=== PATIENT | female | born 2000 | race Hispanic/Latino ===

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

== ENCOUNTER 2022-05-11 17:21 | Emergency (ER) | payer OTHER, SELFPAY ==
--- NOTE | 2022-05-11 18:44 | PC.NURSE ---
PT LWBS NOT TRIAGED
== END 2022-05-11 19:08 | disposition left against medical advice (07) ==
LOC: ANHED 19:03
DX: Z53.21 Procedure and treatment not carried out due to patient leaving prior to being seen by health care provider (principal)
CPT/HCPCS: 99199

== ENCOUNTER 2022-10-29 19:08 | Emergency (ER) | payer OTHER, SELFPAY ==
--- NOTE | ~2022-10-29 | US_ITS ---
EXAMINATION: US abdomen limited DATE: 10/29/2022 21:36 INDICATION: Biliary colic. TECHNIQUE: Multiple grayscale and Doppler ultrasound images of the abdomen were obtained. COMPARISON: None FINDINGS: The visualized portions of the head and body of the pancreas are normal. The liver is zion l without focal lesion. There is normal flow in main portal vein. The gallbladder is distended and co ntains sludge. No gallstones or gallbladder wall thickening. The common duct is normal and measures 4 mm. There is antegrade flow in main portal vein. IMPRESSION: 1. Gallbladder sludge. Gallbladder distention may be secondary to fasting. No gallbladder wall thicke jose to suggest acute cholecystitis. Reviewed, dictated and finalized at location E. IMPRESSION: 1. Gallbladder sludge. Gallbladder distention may be secondary to fasting. No g allbladder wall thickening to suggest acute cholecystitis.
[2022-10-29 19:13] VITALS: BP 137/86; PULSE 70; RESP 18; TEMP 36.8; O2SAT 100
[2022-10-29] MEDS: ACETAMINOPHEN 500 MG TABLET 1000 MG PO (21:10)
[2022-10-29] MEDS: SODIUM CHLORIDE 0.9% IV 1,000 ML 999 ML IV CONT (21:10)
[2022-10-29] MEDS: KETOROLAC 15 MG/ML VIAL (*BKC) IV PUSH (21:11)
--- NOTE | 2022-10-29 21:31 | ED.GENADULT ---
HPI - General Adult General Chief complaint: Abdominal Pain Stated complaint: abd pain Time Seen by Provider: 10/29/22 20:32 History of Present Illness HPI narrative: This is a 22-year-old female presenting ED with abdominal pain x1 year. Patient says she is intermittently having achy pain on the right side of her abdomen for the last year. However this morning it became more constant. It is 8/10 in intensity. There are no exacerbating relieving factors. Not associated with fever, chills, nausea vomiting diarrhea urinary symptoms. patient's last menstrual period was earlier this month. Related Data Home Medications Medication Instructions Recorded Confirmed ferrous sulfate 325 mg (65 mg 325 mg PO TID 08/03/21 08/24/21 iron) tablet (FeroSul) vit no.95-ferrous 1 tablet PO DAILY 08/03/21 08/24/21 fumarate 28 mg-folic acid 800 mcg tablet () Allergies Allergy/AdvReac Type Severity Reaction Status Date / Time Penicillins Allergy Rash Verified 10/29/22 19:08 [facility] Family History Family History Grandparent Diabetes mellitus Social History Social History Smoking status: Never smoker Substance use: never Spiritual care concerns: No Exam Narrative: APPEARANCE: elevated BMI, , no apparent distress Head: atraumatic. EYES: EOMI, NOSE: Atraumatic NECK: Trachea midline RESPIRATORY: No increased rate of breathing clear auscultation CARDIOVASCULAR: RRR, ABDOMINAL: Nondistended, soft nontender no guarding or rebound, no CVA tenderness MUSCULOSKELETAl: No obvious deformities NEURO: Alert. Moving 4/4 extremities SKIN:: Warm, dry. Normal color PSYCHIATRIC: Normal affect Course Vital Signs Vital signs: Vital Signs Temperature 98.2 F 10/29/22 19:13 Pulse Rate 70 10/29/22 19:13 Respiratory Rate 18 10/29/22 19:13 Blood Pressure 137/86 10/29/22 19:13 Pulse Oximetry 100 10/29/22 19:13 Oxygen Delivery Room Air 10/29/22 19:13 Temperature 98.2 F 10/29/22 19:13 Pulse Rate 70 10/29/22 19:13 Respiratory Rate 18 10/29/22 19:13 Blood Pressure 137/86 10/29/22 19:13 Pulse Oximetry 100 10/29/22 19:13 Oxygen Delivery Room Air 10/29/22 19:13 Medical Decision Making MDM Narrative Medical decision making narrative: -Presentation: 22-year-old presenting with right-sided abdominal pain x1 year. -DDX includes but is not limited to: Biliary colic, gastritis, functional abdominal pain, appendicitis -Co-morbidities complicating care: obesity -Social determinants of health: patient is unemployed lives with her mom -External Chart Review: review of previous admission notes for . -Hx from independent Sources: Sister Sonya at bedside -Discussion of Management/Consultants: none -Independent interpretation of studies: CBC showed hemoglobin of 8.8. The patient is taking iron supplementation. Metabolic panels unremarkable with no elevations in liver enzymes. Urine was not indicative of infection. Abdominal ultrasound showed gallbladder sludge but no evidence of cholecystitis. Dx tests considered but not ordered: CT abdomen pelvis - patient has no tenderness in the right lower quadrant I am not concerned for appendicitis. -Procedures: None -Interventions: Toradol, Tylenol, 2 L normal saline -Shared decision making / Disposition: upon re-evaluation patient is resting comfortably. She is tolerating p.o.. Her abdominal exam is still benign. She will be discharged with surgery follow-up as her pain is likely due to her gallbladder. -RX Vital Signs Vital Signs: Vital Signs Temperature 98.2 F 10/29/22 19:13 Pulse Rate 70 10/29/22 19:13 Respiratory Rate 18 10/29/22 19:13 Blood Pressure 137/86 10/29/22 19:13 Pulse Oximetry 100 10/29/22 19:13 Oxygen Delivery Room Air 10/29/22 19:13 Temperature
[2022-10-29 21:34] LABS: Basophils Absolute Auto 0.1 K/mm3 (0.0-0.1); Basophils Percent Auto 0.6 % (0.2-1.2); Eosinophils Absolute Auto 0.1 K/mm3 (0-0.3); Eosinophils Percent Auto 0.7 % (0-4.4); Hematocrit 30.4 % (37.0-47.0); Hemoglobin 8.8 g/dL (12.0-15.0); Immature Granulocyte Absolute 0.02 K/mm3 (0.00-0.031); Immature Granulocyte Percent A 0.2 % (0-0.5); Lymphocytes Percent Auto 34.4 % (18.3-44.2); Mean Corpuscular HGB Conc 28.9 g/dl (32-36); Mean Corpuscular Hemoglobin 20.2 pg (26-34); Mean Corpuscular Volume 69.9 fl (80-100); Mean Platelet Volume 8.6 fl (7.4-10.4); Monocytes Absolute Auto 0.5 K/mm3 (0.1-0.6); Monocytes Percent Auto 5.1 % (2.6-8.5); Neutrophils Absolute Auto 5.7 K/mm3 (1.3-6.7); Platelet Count Result 446 k/mm3 (150-375); Red Blood Count 4.35 M/mm3 (4.2-5.4); Red Cell Distribution Width 19.2 % (11.5-14.5); White Blood Count 9.6 K/mm3 (4.5-10.0)
[2022-10-29 21:46] LABS: Anisocytosis 1+ (NORMAL); Hypochromasia 1+ (NORMAL); Microcytosis 1+ (NORMAL); Ovalocytes 1+ (NORMAL); Platelet Estimate Increased (Adequate)
[2022-10-29 21:47] LABS: Alanine Aminotransferase 22 U/L (6-35); Albumin Level 4.6 g/dL (3.5-5.1); Alkaline Phosphatase 89 U/L (38-126); Anion Gap 9 mmol/L (8-16); Aspartate Amino Transferase 31 U/L (14-36); Bilirubin,Total 0.5 mg/dL (0.2-1.3); Blood Urea Nitrogen 6 mg/dL (7-17); Carbon Dioxide 23 mmol/L (22-30); Chloride 107 mmol/L (98-107); Estimated CRCL calculation 165 ml/min; Estimated Glomerular Filt Rate > 60; Glucose 103 mg/dL (65-110); Lipase 90 U/L (23-300); Potassium 4.1 mmol/L (3.4-5.0); Schistocytes None Seen (NORMAL); Sodium 139 mmol/L (137-145)
[2022-10-29 21:52] LABS: Appearance Urine Clear (Clear); Bilirubin Urine Negative (Negative); Blood Urine Negative (Negative); Color Urine Yellow (Yellow); Glucose Urine UA Negative (Negative); Ketones Urine Negative (Negative); Leukocyte Esterase Ur Negative LEU/UL (Negative); Nitrate Urine Negative (Negative); Protein Urine Negative (Negative); Specific Grav Ur 1.014 (1.001-1.035); Urobilinogen Urine 0.2 mg/dL (<2.0); pH Urine 7.5 (5.0-9.0)
[2022-10-29 21:56] LABS: Add Urine Microscopic? NO
[2022-10-29 23:07] VITALS: BP 124/65; PULSE 62; RESP 18; O2SAT 97
== END 2022-10-29 23:09 | disposition home or self-care (01) ==
PROVIDERS: Emergency Provider Emergency Medicine
DX: K80.50 Calculus of bile duct without cholangitis or cholecystitis without obstruction (principal)
CPT/HCPCS: 36415; 76705; 80053; 81003; 81025; 83690; 85025; 96361; 96374; 99284; A9270; J1885; J7030

== ENCOUNTER 2023-06-28 02:21 | Day surgery (SDC) | payer OTHER, SELFPAY ==
[2023-06-28] VITALS (17 sets, daily range): BP systolic 111–149; BP diastolic 55–83; PULSE 72–105; RESP 16–20; TEMP 36.6–37.4; O2SAT 97–100
--- NOTE | ~2023-06-28 | US_ITS ---
US right upper quadrant DATE: 06/28/2023 08:08 INDICATION: Right upper quadrant abdominal pain TECHNIQUE: Real-time imaging of liver, pancreas, gallbladder COMPARISON: 10/29/2022 Limited abdominal ultrasound examination FINDINGS: There is an approximately 2 cm nonmobile hyperechoic focus with posterior shadowing at the gallbladder neck, consistent with gallbladder neck gallstone. The gallbladder is distended. The wall does not appear abnormally thickened. However, there is an approximately 4 x 9.5 mm soft tissue densi ty along the lower medial wall of the gallbladder, with internal vascularity, likely a polyp. Negative sonographic Davila's sign. The common bile duct measures 3.2 mm, within normal limits. No hepatic space-occupying mass lesion is detected. Normal hepatopedal portal venous flow direction. There is limited visualization of the pancreas. IMPRESSION: Gallbladder neck 2 cm gallstone, nonmobile Probable gallbladder polyp Reviewed, dictated and finalized at [facility]. Reviewed, dictated and finalized at [facility]. ASSOCIATE
[2023-06-28 02:37] LABS: Basophils Absolute Auto 0.1 K/mm3 (0.0-0.1); Basophils Percent Auto 0.4 % (0.2-1.2); Eosinophils Absolute Auto 0.1 K/mm3 (0-0.3); Hematocrit 33.4 % (37.0-47.0); Hemoglobin 9.7 g/dL (12.0-15.0); Immature Granulocyte Absolute 0.05 K/mm3 (0.00-0.031); Immature Granulocyte Percent A 0.4 % (0-0.5); Lymphocytes Absolute Auto 2.57 K/mm3 (0.9-3.2); Lymphocytes Percent Auto 21.2 % (18.3-44.2); Mean Corpuscular Hemoglobin 20.5 pg (26-34); Mean Corpuscular Volume 70.5 fl (80-100); Mean Platelet Volume 8.5 fl (7.4-10.4); Monocytes Absolute Auto 0.7 K/mm3 (0.1-0.6); Monocytes Percent Auto 5.5 % (2.6-8.5); Neutrophils Absolute Auto 8.7 K/mm3 (1.3-6.7); Neutrophils Percent Auto 71.5 % (45.5-73.1); Platelet Count Result 447 k/mm3 (150-375); Red Blood Count 4.74 M/mm3 (4.2-5.4); Red Cell Distribution Width 17.9 % (11.5-14.5); White Blood Count 12.1 K/mm3 (4.5-10.0)
[2023-06-28 02:53] LABS: Appearance Urine Clear (Clear); Bilirubin Urine Negative (Negative); Blood Urine Negative (Negative); Color Urine Yellow (Yellow); Glucose Urine UA Negative (Negative); Ketones Urine Negative (Negative); Leukocyte Esterase Ur Negative LEU/UL (Negative); Nitrate Urine Negative (Negative); Protein Urine Negative (Negative); Specific Grav Ur 1.029 (1.001-1.035); Urobilinogen Urine 0.2 mg/dL (<2.0); pH Urine 5.5 (5.0-9.0)
[2023-06-28 02:54] LABS: Add Urine Microscopic? NO
[2023-06-28 02:59] LABS: Alanine Aminotransferase 24 U/L (6-35); Albumin Level 4.5 g/dL (3.5-5.1); Alkaline Phosphatase 101 U/L (38-126); Anion Gap 10 mmol/L (8-16); Aspartate Amino Transferase 43 U/L (14-36); Bilirubin,Total 0.5 mg/dL (0.2-1.3); Blood Urea Nitrogen 8 mg/dL (7-17); Calcium 9.1 mg/dL (8.4-10.2); Carbon Dioxide 26 mmol/L (22-30); Chloride 103 mmol/L (98-107); Estimated CRCL calculation 152 ml/min; Estimated Glomerular Filt Rate > 60; Glucose 127 mg/dL (65-110); Lipase 96 U/L (23-300); Potassium 4.1 mmol/L (3.4-5.0); Sodium 139 mmol/L (137-145)
[2023-06-28 03:04] LABS: Platelet Estimate Adequate (Adequate)
[2023-06-28 03:05] LABS: Hypochromasia 1+ (NORMAL); Microcytosis 2+ (NORMAL)
[2023-06-28 03:06] LABS: Schistocytes None Seen (NORMAL)
--- NOTE | 2023-06-28 07:53 | ED.GENADULT ---
HPI - General Adult General Chief complaint: Abdominal Pain Stated complaint: Right sided abdomin pain Time Seen by Provider: 06/28/23 06:58 History of Present Illness HPI narrative: Patient is a 23-year-old female who presents ER with right upper quadrant abdominal pain. Ongoing since last night. Worse after eating chicken and broccoli. Has history of acid reflux but this feels different. No diarrhea. No fevers or chills or sweats. No alleviating factors. Mother with history of gallstones. Related Data Home Medications Medication Instructions Recorded Confirmed vit no.95-ferrous 1 tablet PO DAILY 08/03/21 06/28/23 fumarate 28 mg-folic acid 800 mcg tablet () Allergies Allergy/AdvReac Type Severity Reaction Status Date / Time Penicillins Allergy Rash Verified 06/28/23 13:07 Review of Systems Review of Systems: All systems reviewed & are unremarkable except as noted in HPI and below Constitutional: Constitutional: Denies chills, Denies fatigue and Denies fever(s) ENT: Reports system reviewed and no additional complaints, except as documented Cardiovascular: Cardiovascular: Reports no additional cardiovascular complaints Respiratory: Respiratory: Reports no additional respiratory complaints Gastrointestinal: Gastrointestinal: Reports abdominal pain, Denies diarrhea, Reports nausea and Denies vomiting PMFSH Past Medical History Medical History Anemia GERD (gastroesophageal reflux disease) Surgical History Surgical History No pertinent past surgical history Family History Family History Grandparent Diabetes mellitus Social History Social History Smoking status: Never smoker Alcohol intake: never Substance use: never Spiritual care concerns: No Exam Narrative: GENERAL: Well-appearing, well-nourished, and in no acute distress. HEAD: Normocephalic, atraumatic. ENT: Mucous membranes moist. CHEST: Clear to auscultation. No respiratory distress. HEART: Regular rate and rhythm. Normal peripheral pulses. ABDOMEN: Soft, nontender, nondistended. EXTREMITIES: Normal range of motion. No edema. SKIN: Warm, dry, no rash. NEURO: Alert and oriented x3. PSYCH: Normal mood and affect. Course Course Emergency Course: Patient initially accepted to General surgery Service, however a spot in OR opened up and patient was taken for a cholecystectomy. She did receive IV antibiotics. Vital Signs Vital signs: Vital Signs Temperature 97.8 F 06/28/23 02:23 Blood Pressure 147/77 H 06/28/23 02:23 Temperature 98.1 F 06/28/23 14:34 Pulse Rate 73 06/28/23 17:05 Respiratory Rate 18 06/28/23 15:55 Blood Pressure 116/65 06/28/23 17:05 Pulse Oximetry 98 06/28/23 15:55 Oxygen Delivery Room Air 06/28/23 17:05 Oxygen Flow Rate 8 06/28/23 15:01 Medical Decision Making Vital Signs Vital Signs: Vital Signs Temperature 97.8 F 06/28/23 02:23 Blood Pressure 147/77 H 06/28/23 02:23 Temperature 98.1 F 06/28/23 14:34 Pulse Rate 73 06/28/23 17:05 Respiratory Rate 18 06/28/23 15:55 Blood Pressure 116/65 06/28/23 17:05 Pulse Oximetry 98 06/28/23 15:55 Oxygen Delivery Room Air 06/28/23 17:05 Oxygen Flow Rate 8 06/28/23 15:01 Lab Data 06/28/23 02:31 06/28/23 02:31 Labs: Lab Results 06/28/23 06/28/23 Range/Units 02:31 02:45 WBC 12.1 H (4.5-10.0) K/mm3 RBC 4.74 (4.2-5.4) M/mm3 Hgb 9.7 L (12.0-15.0) g/dL Hct 33.4 L (37.0-47.0) % MCV 70.5 L (80-100) fl MCH 20.5 L (26-34) pg MCHC 29.0 L (32-36) g/dl RDW 17.9 H (11.5-14.5) % Plt Count 447 H (150-375) k/mm3 MPV 8.5 (7.4-10.4) fl Immature Gran % (Auto)
[2023-06-28] MEDS: ONDANSETRON INJ 4 MG/2 ML VIAL IV PUSH (09:00)
--- NOTE | 2023-06-28 11:14 | PM.IMHP ---
H&P: HPI History of Present Illness Date/Time: 06/28/23 11:14 Chief Complaint: RUQ abdominal pain Narrative: This is a 23-year-old woman who presented to the ER today with complaints of right upper quadrant abdominal pain. She reports pain starting a few hours after eating tacos for lunch in the afternoon. She reports associated nausea, but no vomiting. Her abdominal pain continued through the night and progressively worsened, which brought her into the ER for evaluation. She reports having intermittent more mild episodes of right upper quadrant abdominal pain over the past few years. This occurs about every couple months. Typically, used episodes seem to occur after meals, but typically resolve spontaneously. Labs in [place] [address]. LFTs and lipase normal. She is also anemic with a hemoglobin 9.7. In review of labs from 2021, her hemoglobin was around 9 and this was during a vaginal delivery. She reports that she is still taking iron for her anemia. Right upper quadrant abdominal ultrasound showed a non mobile 2 cm gallstone in the neck of the gallbladder, and probable gallbladder polyp. Our service was consulted by the ED physician. She is seen in the ER. She has not received any analgesics and reports her pain has improved slightly this morning. She currently rates it at a 4/10 on a pain scale. No previous abdominal surgeries. No other medical history. She has been started on IV ceftriaxone and metronidazole. She has an anaphylactic penicillin allergy. Review of Systems Review of Systems: All systems reviewed & are unremarkable except as noted in HPI and below Gastrointestinal: Gastrointestinal: Reports as per HPI, Reports no additional gastrointestinal complaints, Reports abdominal pain, Denies melena, Denies hematochezia, Denies diarrhea, Reports nausea and Denies vomiting PMFSH Past Medical History Medical History Anemia GERD (gastroesophageal reflux disease) Surgical History Surgical History No pertinent past surgical history Family History Family History Grandparent Diabetes mellitus Social History Social History Smoking status: Never smoker Alcohol intake: never Substance use: never Spiritual care concerns: No Meds Home Medications and Allergies Home Medications Medication Instructions Recorded Confirmed Type ferrous sulfate 325 mg (65 mg 325 mg PO TID 08/03/21 08/24/21 History iron) tablet (FeroSul) vit no.95-ferrous 1 tablet PO DAILY 08/03/21 08/24/21 History fumarate 28 mg-folic acid 800 mcg tablet () acetaminophen 500 mg tablet 1,000 mg PO TID PRN kira 7 days #42 10/29/22 Rx tabs ibuprofen 800 mg tablet 800 mg PO TID PRN pain 7 days #21 10/29/22 Rx tabs ondansetron 4 mg disintegrating 4 mg PO Q8H PRN nausea and 10/29/22 Rx tablet vomiting #30 tabs Allergies Allergy/AdvReac Type Severity Reaction Status Date / Time Penicillins Allergy Rash Verified 06/28/23 06:38 Vital Signs Vital Signs - 24 hr 06/28/23 02:23 06/28/23 04:26 06/28/23 06:37 Temperature 97.8 F 97.9 F Pulse Rate 92 96 Respiratory Rate 16 17 Blood Pressure 147/77 H 149/74 H Pulse Oximetry 100 100 06/28/23 06:39 06/28/23 08:51 06/28/23 10:46 Temperature Pulse Rate 105 H 77 Respiratory Rate 18 18 Blood Pressure 126/75 128/60 126/72 Pulse Oximetry 100 100 Exam Const: General: comfortable and no acute distress Nutritional Appearance: overweight Orientation/consciousness: patient oriented x3 HENMT: Head: normocephalic and atraumatic Ears: hearing grossly normal bilaterally Mouth: Yes moist mucous membranes Eyes: General: appearance normal, both eyes and all related structures Pupils
[2023-06-28] MEDS: metroNIDAZOLE 500 MG/ISO 100ML 500 MG/100 ML BAG 100 MG IVPB (11:55)
--- NOTE | 2023-06-28 12:54 | WPDHPUPDATE1 ---
History and Physical Update Update Date/Time: 06/28/23 12:54 History and Physical has been reviewed, including an updated exam of the patient. There are NO changes in the patient's condition. Risks, benefits, and alternatives have been discussed and questions answered. Patient agrees to proceed with procedure. will proceed c sarthak jameson today, NPO, IV abx
[2023-06-28] MEDS: LACTATED RINGERS 1,000 ML 30 ML IV CONT (13:05)
--- NOTE | 2023-06-28 13:08 | WPDANESEPPF ---
Anes - Initial Pre Proc Eval Procedure: Operation Date: 06/28/23 14:00 Proposed Procedures p Laparoscopic Cholecystectomy - Sarah Merino MD Date/Time: 06/28/23 13:08 Surgeon: Sarah Merino MD Pre Op Diagnosis: Cholecystitis Patient Data Age: 23 Gender: F Height: 1.55 m Weight: 90.91 kg Last Vital Signs Temp 36.6 C 06/28/23 04:26 Pulse 77 06/28/23 10:46 Resp 18 06/28/23 10:46 BP 126/72 06/28/23 10:46 Pulse Ox 100 06/28/23 10:46 Allergies Allergy/AdvReac Type Severity Reaction Status Date / Time Penicillins Allergy Rash Verified 06/28/23 13:07 Home Medications Medication Instructions Recorded Confirmed Type ferrous sulfate 325 mg (65 mg 325 mg PO TID 08/03/21 08/24/21 History iron) tablet (FeroSul) vit no.95-ferrous 1 tablet PO DAILY 08/03/21 08/24/21 History fumarate 28 mg-folic acid 800 mcg tablet () acetaminophen 500 mg tablet 1,000 mg PO TID PRN kira 7 days #42 10/29/22 Rx tabs ibuprofen 800 mg tablet 800 mg PO TID PRN pain 7 days #21 10/29/22 Rx tabs ondansetron 4 mg disintegrating 4 mg PO Q8H PRN nausea and 10/29/22 Rx tablet vomiting #30 tabs Laboratory Tests 06/28/23 06/28/23 02:31 02:45 WBC 12.1 H K/mm3 (4.5-10.0) RBC 4.74 M/mm3 (4.2-5.4) Hgb 9.7 L g/dL (12.0-15.0) Hct 33.4 L % (37.0-47.0) MCV 70.5 L fl (80-100) MCH 20.5 L pg (26-34) MCHC 29.0 L g/dl (32-36) RDW 17.9 H % (11.5-14.5) Plt Count 447 H k/mm3 (150-375) MPV 8.5 fl (7.4-10.4) Immature Gran % (Auto) 0.4 % (0-0.5) Neut % (Auto) 71.5 % (45.5-73.1) Lymph % (Auto) 21.2 % (18.3-44.2) [place] % (Auto) 5.5 % (2.6-8.5) Eos % (Auto) 1.0 % (0-4.4) Baso % (Auto) 0.4 % (0.2-1.2) Lymph # (Auto) 2.57 K/mm3 (0.9-3.2) [place] # (Auto) 0.7 H K/mm3 (0.1-0.6) Eos # (Auto) 0.1 K/mm3 (0-0.3) Baso # (Auto) 0.1 K/mm3 (0.0-0.1) Abs Immat Gran (auto) 0.05 H K/mm3 (0.00-0.031) Absolute Neuts (auto) 8.7 H K/mm3 (1.3-6.7) Absolute Nucleated RBC 0.0 K/mm3 (0.0-0.012) Nucleated RBC % 0.0 % (0.0-0.2) Platelet Estimate Adequate (Adequate) Hypochromasia 1+ (NORMAL) Microcytosis 2+ (NORMAL) Schistocytes None seen (NORMAL) Sodium 139 mmol/L (137-145) Potassium 4.1 mmol/L (3.4-5.0) Chloride 103 mmol/L (98-107) Carbon Dioxide 26 mmol/L (22-30) Anion Gap 10 mmol/L (8-16) BUN 8 mg/dL (7-17) Creatinine 0.50 L mg/dL (0.7-1.0) Estim Creat Clear Calc 152 ml/min Estimated GFR > 60 (59 - ) Glucose 127 H mg/dL (65-110) Calcium 9.1 mg/dL (8.4-10.2) Total Bilirubin 0.5 mg/dL (0.2-1.3) AST 43 H U/L (14-36) ALT 24 U/L (6-35) Alkaline Phosphatase 101 U/L (38-126) Total Protein 9.0 H g/dL (6.3-8.2) Albumin 4.5 g/dL (3.5-5.1) Lipase 96 U/L (23-300) Urine Color Yellow (Yellow) Urine Appearance Clear (Clear) Urine pH 5.5 (5.0-9.0) Ur Specific [place] 1.029 (1.001-1.035) Urine Protein Negative mg/dL (Negative) Urine Glucose (UA) Negative mg/dL (Negative) Urine Ketones Negative mg/dL (Negative) Ur Blood (Man) Negative (Negative) Urine Nitrate Negative (Negative) Urine Bilirubin Negative (Negative) Urine Urobilinogen 0.2 mg/dL (<2.0) Leukocyte Esterase Rfl Negative [place]/UL (Negative) Patient hx anesthesia problems: none Family hx anesthesia problems: none Results Review: All pre-operative results and documents have been reviewed as part of the pre-operative evaluation. [facility] Past Medical History Medical History Anemia GERD (
[2023-06-28] MEDS: ACETAMINOPHEN 500 MG TABLET 1000 MG PO (13:20)
[2023-06-28] MEDS: KETOROLAC 15 MG/ML VIAL (*BKC) IV PUSH (13:25)
[2023-06-28] MEDS: BUPIVACAINE/EPINEPHRINE 0.5% 30 ML VIAL INFILTRATE (14:15)
--- NOTE | 2023-06-28 14:19 | W.PM.PROC2 ---
Procedure Note - Detailed Date of Procedure 06/28/23 Pre-op Diagnosis acute cholecystitis, cholelithiasis Post-op Diagnosis Same Procedure Performed Laparoscopic cholecystectomy Surgeon Sarah Merino MD Anesthesia General Indications 23-year-old female presented to the emergency department complaining of severe right upper quadrant abdominal pain associated with nausea and vomiting. Workup including imaging significant for cholecystitis, cholelithiasis. Findings Cholecystitis with impacted stone at the neck of the gallbladder Description of Procedure The patient was taken to the operating room placed in the supine position. After adequate induction of general anesthesia, the patient was prepped and draped in normal sterile fashion. A time-out was then performed to verify the patient's identity as well as the procedure being performed. I then made a 5 mm incision in the infraumbilical region. Through this, a Veress needle was placed into the peritoneal cavity and CO2 gas was then insufflated. After adequate pneumoperitoneum was achieved, the Veress needle was removed and a 5 mm optiview trocar was placed through this incision under direct visualization. I then placed the laparoscope through this trocar site and under direct visualization placed a further 12 mm subxiphoid port as well as 2 additional 5 mm ports in the right upper abdomen. The gallbladder was then identified and was noted to be inflamed, distended, and full of gallstones. I was able to place a grasper at the dome of the gallbladder and this was retracted anterior and cephalad up over the liver. A 2nd retractor was then placed at the infundibulum and retracted laterally, this allowed visualization of the triangle of Calot. There was noted to be a large impacted stone at the neck the gallbladder. Using careful dissection, I was able to visualize the cystic duct in its entirety from its proximal insertion into the gallbladder, to its distal junction with the common hepatic/common bile duct junction. At this point, I carefully skeletonized the proximal cystic duct with the [place] dissector. I then clipped and transected the proximal cystic duct. Next I visualized the cystic artery. Again the artery was skeletonized, clipped, and transected. I then used the Bovie cautery to take down the peritoneal attachments of the gallbladder off the liver bed. This was somewhat difficult given the amount of inflammation in the posterior space. Once the gallbladder specimen was completely detached, an endo-pouch was placed through the 12 mm port site. I then placed the gallbladder specimen into the Endo pouch and removed the endo-pouch from the 12 mm port site. The specimen will now be sent to pathology for further review. I then copiously irrigated the right upper quadrant. Some mild oozing was noted in the liver bed and this was controlled with the bovie cautery. Hemostasis was noted in the liver bed, the clips were noted to be in good position on both the cystic duct stump and the cystic artery stump. No other pathology was noted in the right upper quadrant. I then moved the laparoscope to the subxiphoid port. No iatrogenic injury or other pathology was noted in the lower abdomen. I then closed the 12 mm trocar site under direct visualization using the Jamie cone and 0 Vicryl suture. At this point, the abdomen was desufflated and all ports removed. All port sites were then closed with 4.O Monocryl subcuticular sutures. Dermabond was placed on each incision. The patient tolerated the procedure well, was extubated in the operating room postoperative and will be transferred to the recovery room in stable condition Estimated Blood Loss 10 Drains No Packing No Pathology Yes Complications No immediate complications Condition Stable Disposition PACU [facility] Billing Surgery - Charge Forward: Surgery Billing
[2023-06-28] MEDS: fentaNYL CITRATE INJ (*CRX) 100 MCG/2 ML VIAL 25 MCG IV PUSH ×3 (15:12→15:40)
[2023-06-28] MEDS: oxyCODONE HCL (*CRX) 5 MG TAB IR PO (16:23)
== END 2023-06-28 17:29 | disposition home or self-care (01) ==
LOC: ANHED 10:43 → ANH3MEDSUR 12:42 → ANHSURGERY 15:22
PROVIDERS: Emergency Medicine; Emergency Provider Emergency Medicine; Visit Provider Surgery
PROC: 0FT44ZZ Resection of Gallbladder, Percutaneous Endoscopic Approach (ICD-10-PCS; CPT 47562; principal; 2023-06-28 14:00)
DX: K80.10 Calculus of gallbladder with chronic cholecystitis without obstruction (principal); D64.9 Anemia, unspecified; K21.9 Gastro-esophageal reflux disease without esophagitis; E66.9 Obesity, unspecified; Z68.37 Body mass index [BMI] 37.0-37.9, adult; Z98.890 Other specified postprocedural states
CPT/HCPCS: 47562; 36415; 76705; 80053; 81003; 81025; 83690; 85025; 88304; 96365; 96375; 99285; A9270; J0696; J1100; J1170; J1836; J1885; J2250; J2405; J2704; J3010; J7030; J7120

== ENCOUNTER 2023-12-04 22:54 | Emergency (ER) | payer OTHER, SELFPAY ==
[2023-12-04 23:00] VITALS: BP 134/76; PULSE 98; RESP 15; TEMP 36.8; O2SAT 100
--- NOTE | 2023-12-05 01:32 | ED.GENADULT ---
HPI - General Adult General Chief complaint: Neck Pain/Injury Stated complaint: neck pain Time Seen by Provider: 12/05/23 00:47 History of Present Illness HPI narrative: This is a 23-year-old female presenting with left ear pain. Patient has also had decreased hearing. She went swimming earlier today. No fever chills nausea vomiting diarrhea. No dental cavities. Related Data Home Medications Medication Instructions Recorded Confirmed vit no.95-ferrous 1 tablet PO DAILY 08/03/21 06/28/23 fumarate 28 mg-folic acid 800 mcg tablet () Allergies Allergy/AdvReac Type Severity Reaction Status Date / Time Penicillins Allergy Rash Verified 12/04/23 23:07 [facility] Past Medical History Medical History Anemia GERD (gastroesophageal reflux disease) Surgical History Surgical History No pertinent past surgical history Family History Family History Grandparent Diabetes mellitus Social History Social History Smoking status: Never smoker Alcohol intake: never Substance use: never Spiritual care concerns: No Exam Narrative: APPEARANCE: No apparent distress. Head: Exam of the left ear revealed purulent discharge in the ear canal. Pain with traction on the pinna. EYES: EOMI, NOSE: Atraumatic NECK: Trachea midline RESPIRATORY: No increased rate of breathing CARDIOVASCULAR: RRR, ABDOMINAL: Non-distended MUSCULOSKELETAl: No obvious deformities NEURO: Alert. Moving 4/4 extremities SKIN:: Warm, dry. Normal color PSYCHIATRIC: Normal affect Course Vital Signs Vital signs: Vital Signs Temperature 98.2 F 12/04/23 23:00 Pulse Rate 98 12/04/23 23:00 Respiratory Rate 15 12/04/23 23:00 Blood Pressure 134/76 12/04/23 23:00 Pulse Oximetry 100 12/04/23 23:00 Oxygen Delivery Room Air 12/04/23 23:00 Temperature 98.2 F 12/04/23 23:00 Pulse Rate 98 12/04/23 23:00 Respiratory Rate 15 12/04/23 23:00 Blood Pressure 134/76 12/04/23 23:00 Pulse Oximetry 100 12/04/23 23:00 Oxygen Delivery Room Air 12/04/23 23:00 Medical Decision Making MDM Narrative Medical decision making narrative: -Course: 23-year-old female presenting with ear pain. Physical exam shows otitis externa. Treated with ciprodex otic drops. follow-up PCP and return precautions. -DDX includes but is not limited to: otitis media, otitis externa -Shared decision making / Disposition: discharge -RX ciprodex Vital Signs Vital Signs: Vital Signs Temperature 98.2 F 12/04/23 23:00 Pulse Rate 98 12/04/23 23:00 Respiratory Rate 15 12/04/23 23:00 Blood Pressure 134/76 12/04/23 23:00 Pulse Oximetry 100 12/04/23 23:00 Oxygen Delivery Room Air 12/04/23 23:00 Temperature 98.2 F 12/04/23 23:00 Pulse Rate 98 12/04/23 23:00 Respiratory Rate 15 12/04/23 23:00 Blood Pressure 134/76 12/04/23 23:00 Pulse Oximetry 100 12/04/23 23:00 Oxygen Delivery Room Air 12/04/23 23:00 Discharge Plan Discharge Clinical Impression: Otitis externa Patient Disposition: Home, Self-Care Condition: Stable Instructions: Antibiotic Form, Swimmer's Ear (AC) Additional Instructions: Please take the ear drops as instructed. follow-up with your primary care physician in the next 2-3 days. Return if develops severe pain year, or if you feel like like your condition is getting worse. Prescriptions: New ciprofloxacin-dexamethasone 0.3-0.1 % drops,suspension 4 drp LEFT EAR Q12H 7 Days Qty: 7.5 0RF No Action PNV cmb#95-ferrous fumarate-FA [] 28 mg iron- 800 mcg tablet 1 tablet PO DAILY ibuprofen 800 mg tablet 800 mg PO TID PRN (Reason: pain) 7 Days Qty: 21 0RF acetaminophen 500 mg tablet 1,000 mg
== END 2023-12-05 02:10 | disposition home or self-care (01) ==
LOC: ANHED 12-05 02:07
PROVIDERS: Emergency Provider Emergency Medicine
DX: H60.92 Unspecified otitis externa, left ear (principal); K21.9 Gastro-esophageal reflux disease without esophagitis; Z86.2 Personal history of diseases of the blood and blood-forming organs and certain disorders involving the immune mechanism
CPT/HCPCS: 99283